=== PATIENT | male | born 1935 | race Caucasian/White ===

== ENCOUNTER 2018-04-18 11:35 | Outpatient (CLI) | payer MEDICARE, BC, OTHER ==
--- NOTE | 2018-04-18 14:55 | RAD ---
TWO VIEWS CHEST: DATE: 04/18/18. PROVIDED CLINICAL HISTORY: Bronchitis. FINDINGS: Comparison 02/20/15. Cardiac and mediastinal silhouette is unchanged in appearance. Lungs appear sterling ar. No pleural fluid or pneumothorax apparent. IMPRESSION: No evidence for an acute cardiopulmonary process. POS: [facility]
== END 2018-04-18 11:36 | disposition home or self-care (01) ==
LOC: SCSRAD 11:35
PROVIDERS: ATTEND Nurse Practitioner Family
DX: J40 Bronchitis, not specified as acute or chronic (principal)
CPT/HCPCS: 71046

== ENCOUNTER 2018-10-24 14:37 | Outpatient (CLI) | payer MEDICARE, BC, OTHER ==
--- NOTE | 2018-10-24 15:31 | RAD ---
TWO VIEWS OF THE CHEST: COMPARISON: None. HISTORY: Cough and shortness of breath. FINDINGS: Two views of the chest show normal sized cardiomediastinal silhouette. There is no evidence of consol idation, mass, or pleural effusion. The bones are unremarkable. IMPRESSION: No evidence of acute cardiopulmonary disease. POS: [facility]
== END 2018-10-24 14:38 | disposition home or self-care (01) ==
LOC: SCSRAD 14:37
PROVIDERS: ATTEND Nurse Practitioner Family
DX: J40 Bronchitis, not specified as acute or chronic (principal)
CPT/HCPCS: 71046